=== PATIENT | female | born 1970 | race Caucasian/White ===

== ENCOUNTER 2018-02-27 07:53 | Emergency (ER) | payer BC ==
[~2018-02-27] VITALS: Ht 157.5 cm; Wt 114.3 kg
[2018-02-27] MEDS ORDERED: CYAN10009 PO (08:14)
[2018-02-27] MEDS ORDERED: GABA-534 PO (08:14)
[2018-02-27] MEDS ORDERED: LOSA100T15 PO (08:14)
[2018-02-27] MEDS ORDERED: GABA600T2 PO (08:14)
[2018-02-27] MEDS ORDERED: OMEP20CA10 PO (08:14)
[2018-02-27] MEDS ORDERED: AMLO10TA2 PO (08:14)
[2018-02-27] MEDS ORDERED: OXYC-133 PO (08:14)
[2018-02-27] MEDS ORDERED: METO50TA16 PO (08:14)
[2018-02-27] MEDS ORDERED: CHOL20004 PO (08:14)
[2018-02-27] MEDS ORDERED: LIDOCAINE HCL 1% 20 ML VIAL IJ ONE (08:30)
--- NOTE | 2018-02-27 09:12 | NUR ---
Patient discharged to home in stable conditon. Written and verbal after care instructions given to patient. Patient verbalizes understanding of instructions.
[2018-03-13] MEDS ORDERED: SIMV10TA6 PO (15:15)
[2018-03-13] MEDS ORDERED: LEVO500T2 PO (15:15)
== END 2018-02-27 09:14 | disposition home or self-care (01) ==
LOC: ER 07:56
DX: L02.212 Cutaneous abscess of back [any part, except buttock and flank] (principal); I10 Essential (primary) hypertension; Z88.5 Allergy status to narcotic agent; Z79.899 Other long term (current) drug therapy; Z79.891 Long term (current) use of opiate analgesic
CPT/HCPCS: A4663; J3490

== ENCOUNTER 2018-03-11 13:07 | Inpatient (IN) | payer BC, OTHER ==
[~2018-03-11] VITALS: Ht 157.5 cm; Wt 113.4 kg
[~2018-03-11 13:07] MED LIST: AMLO10TA2 PO; CHOL20004 PO; CYAN10009 PO; GABA-534 PO; GABA600T2 PO; LOSA100T15 PO; METO50TA16 PO; OMEP20CA10 PO; OXYC-133 PO
[2018-03-11] MEDS ORDERED: predniSONE 20 MG TABLET PO ONE (14:13)
[2018-03-11] MEDS ORDERED: IPRATROPIUM BROMIDE 0.5 MG/2.5 ML NEBU NEB ONE (14:15)
[2018-03-11] MEDS ORDERED: ALBUTEROL SULFATE 2.5 MG/3 ML NEBU NEB ONE (14:15)
[2018-03-11] MEDS ORDERED: predniSONE 50 MG TABLET ONE (14:30)
[2018-03-11] MEDS ORDERED: predniSONE 10 MG TABLET ONE (14:30)
[2018-03-11 14:32] LABS: BASOPHILS # (AUTO) 0.1 K/uL (0.0-8.0); BASOPHILS % (AUTO) 0.4 % (0.0-2.0); EOSINOPHILS # (AUTO) 0.1 K/uL (0.0-0.7); EOSINOPHILS % (AUTO) 0.7 % (0.0-7.0); HEMATOCRIT 33.8 % (31.2-41.9); HEMOGLOBIN 11.3 g/dL (10.9-14.3); LYMPHOCYTES # (AUTO) 2.7 K/uL (20.0-40.0); LYMPHOCYTES % (AUTO) 17.4 % (20.5-51.5); MEAN CORPUSCULAR HEMOGLOBIN 30.3 uug (24.7-32.8); MEAN CORPUSCULAR HGB CONC 33 g/dL (32.3-35.6); MONOCYTES # (AUTO) 0.7 K/uL (2.0-10.0); MONOCYTES % (AUTO) 4.4 % (0.0-11.0); NEUTROPHILS % (AUTO) 77.1 % (38.5-71.5); PLATELET COUNT (AUTO) 271 K/uL (179-408); RED BLOOD CELL COUNT(AUTO) 3.72 MIL/uL (3.63-4.92); WHITE BLOOD COUNT (AUTO) 15.5 K/uL (3.8-11.8)
[2018-03-11] MEDS ORDERED: ALBUTEROL SULFATE 2.5 MG/3 ML NEBU ONE (14:33)
[2018-03-11] MEDS ORDERED: IPRATROPIUM BROMIDE 0.5 MG/2.5 ML NEBU ONE (14:34)
[2018-03-11 14:40] LABS: CREATININE 0.6 mg/dL (0.6-1.3); POTASSIUM 3.9 mmol/L (3.5-5.1)
[2018-03-11 14:42] LABS: *BLOOD, URINE Trace-intact (NEGATIVE); *COLOR,URINE DARK YELLOW (YELLOW); *KETONES,URINE NEGATIVE (NEGATIVE); *PROTEIN,URINE 1+ (NEGATIVE); LEUKOCYTE ESTERASE ,URINE NEGATIVE (NEGATIVE); NITRITE, URINE NEGATIVE (NEGATIVE); UGLUCOSE NEGATIVE (NEGATIVE)
[2018-03-11 14:46] LABS: BILIRUBIN,TOTAL 0.5 mg/dL (0.2-1.0); TOTAL PROTEIN, SERUM 7.3 g/dL (6.4-8.2)
[2018-03-11 14:52] LABS: *BILIRUBIN,URIN NEGATIVE (NEGATIVE); *CLARITY,URINE HAZY (CLEAR)
[2018-03-11 14:53] LABS: MUCUS,URINE MANY /LPF (0-FEW); SQUAMOUS EPITHELIAL CELL,UR MODERATE /HPF (NONE SEEN)
[2018-03-11] MEDS ORDERED: AZITHROMYCIN 250 MG TABLET PO ONE (16:32)
[2018-03-11] MEDS ORDERED: AZITHROMYCIN 250 MG TABLET ONE (16:48)
[2018-03-11] MEDS ORDERED: IOHEXOL 300MG/ML 100 ML INFUS..BTL ONE (16:58)
[2018-03-11] MEDS ORDERED: SWABABLE VALVE TRANSFER SET EA MC ONE (16:58)
[2018-03-11] MEDS ORDERED: IV NORMAL SALINE 100 ML ONE (16:58)
[2018-03-11] MEDS ORDERED: NORMAL SALINE FLUSH 10 ML DISP.SYRIN ONE (16:58)
--- NOTE | 2018-03-11 17:22 | NUR ---
Pt signed consent for IV contrast.
[2018-03-11] MEDS ORDERED: TEMAZEPAM 15 MG CAPSULE PO PRN (18:45)
[2018-03-11] MEDS ORDERED: MAGNESIUM HYDROXIDE 30 ML LIQUID UDC PO PRN (18:45)
[2018-03-11] MEDS ORDERED: ONDANSETRON 4 MG/2 ML VIAL IV PRN (18:45)
[2018-03-11] MEDS ORDERED: ACETAMINOPHEN 325 MG TABLET PO PRN (18:45)
[2018-03-11 19:07] VITALS: BP 145/77
--- NOTE | 2018-03-11 20:00 | NUR ---
Pt observed to be AAO x 4 with at bedside. No s/s of distress at this time. Unit orientation provided. Pertinent assessments done. Bed in low, locked position. Call light within reach. Will continue to monitor closely.
[2018-03-11] MEDS: IV 1/2NS 1000 ML 1,000 ML IV PRN (20:21)
[2018-03-11 20:44] VITALS: BP 139/72
[2018-03-11] MEDS: CEFTRIAXONE 1 G in IV DEXTROSE 5% 50 ML IV SCH (20:47)
[2018-03-11] MEDS: METOPROLOL TARTRATE 50 MG TABLET PO SCH (20:53)
[2018-03-11] MEDS: GABAPENTIN 300 MG CAPSULE PO SCH (20:54)
[2018-03-11] MEDS ORDERED: Medication Not On Formulary EA (Gabapentin 600 MG) PO SCH (21:00)
[2018-03-11] MEDS: TEMAZEPAM 7.5 MG CAPSULE PO PRN (23:45)
[2018-03-11] MEDS: OXYCODONE/APAP 5-325 MG TABLET PO PRN (23:46)
[2018-03-12 05:09] VITALS: BP 138/68
--- NOTE | 2018-03-12 05:29 | NUR ---
Pt is observed to be coughing intermittently, and able to cough out a small amount of reddish sputum. No SOB noted. Denies pain at this time. All needs met. No s/s of distress at this time. Safety measures provided. Will endorse accordingly.
[2018-03-12] MEDS: PANTOPRAZOLE SODIUM 40 MG TABLET.DR PO SCH (06:05)
[2018-03-12] MEDS: OXYCODONE/APAP 5-325 MG TABLET PO PRN ×3 (06:16→18:33)
[2018-03-12 07:05] LABS: CREATININE 0.6 mg/dL (0.6-1.3); MAGNESIUM 2.1 mg/dL (1.8-2.4); PHOSPHOROUS 3.3 mg/dL (2.5-4.9)
[2018-03-12 07:09] LABS: BASOPHILS % (AUTO) 0.2 % (0.0-2.0); EOSINOPHILS % (AUTO) 0.1 % (0.0-7.0); HEMOGLOBIN 10.9 g/dL (10.9-14.3); LYMPHOCYTES # (AUTO) 2.3 K/uL (20.0-40.0); LYMPHOCYTES % (AUTO) 16.2 % (20.5-51.5); MEAN CORPUSCULAR HEMOGLOBIN 30.8 uug (24.7-32.8); MEAN CORPUSCULAR HGB CONC 34 g/dL (32.3-35.6); MEAN CORPUSCULAR VOLUME 90.5 fL (75.5-95.3); MONOCYTES # (AUTO) 0.6 K/uL (2.0-10.0); MONOCYTES % (AUTO) 4.2 % (0.0-11.0); NEUTROPHILS % (AUTO) 79.3 % (38.5-71.5); PLATELET COUNT (AUTO) 265 K/uL (179-408); RED BLOOD CELL COUNT(AUTO) 3.53 MIL/uL (3.63-4.92); WHITE BLOOD COUNT (AUTO) 13.9 K/uL (3.8-11.8)
[2018-03-12 07:17] LABS: THYROID STIMULATING HORMONE 0.328 mIU/mL (0.358-3.740)
[2018-03-12] MEDS: LOSARTAN POTASSIUM 50 MG TABLET PO SCH (08:01)
[2018-03-12] MEDS: CYANOCOBALAMIN 1,000 MCG TABLET PO SCH (08:01)
[2018-03-12] MEDS: METOPROLOL TARTRATE 50 MG TABLET PO SCH ×2 (08:02→20:31)
[2018-03-12] MEDS: GABAPENTIN 300 MG CAPSULE PO SCH ×3 (08:02→20:31)
[2018-03-12] MEDS: CHOLECALCIFEROL 1,000 UNIT TABLET PO SCH (08:02)
[2018-03-12] MEDS ORDERED: Medication Not On Formulary EA (Cholecalciferol (Vitamin D3) (Vitamin D CAPSULE) 2,000 U PO SCH (09:00)
[2018-03-12] MEDS ORDERED: AMLODIPINE 10 MG TABLET PO SCH (09:00)
[2018-03-12] MEDS ORDERED: Medication Not On Formulary EA (Losartan Potassium 100 MG) PO SCH (09:00)
[2018-03-12 11:42] VITALS: BP 139/82
[2018-03-12] MEDS: IV 1/2NS 1000 ML 1,000 ML IV PRN (12:06)
[2018-03-12 15:40] VITALS: BP_SYST 104; BP_SYST 150; BP_DIAS 49; BP_DIAS 77
[2018-03-12] MEDS: AZITHROMYCIN IV 500 MG in IV DEXTROSE 5% 250 ML IV SCH (16:22)
[2018-03-12] MEDS: CEFTRIAXONE 1 G in IV DEXTROSE 5% 50 ML IV SCH (17:58)
[2018-03-12] MEDS: ALBUTEROL SULFATE 2.5 MG/3 ML NEBU NEB PRN (19:20)
--- NOTE | 2018-03-12 20:00 | NUR ---
RECEIVED PATIENT AWAKE IN BED. A/O X4. DENIES ANY PAIN OR DISCOMFORT AT THIS TIME. NO RESP. DISTRESS NOTED. DENIES SOB. PRODUCTIVE COUGH NOTED. IVF INFUSING WELL TO LEFT FA #22 GAUGE. VS WNL. CALL LIGHT IN REACH. ALL NEEDS ATTENDED. WILL CONTINUE TO MONITOR AND ASSESS.
[2018-03-12] MEDS: LACTOBACILLUS RHAMNOSUS GG 1 EACH CAPSULE PO SCH (20:31)
[2018-03-12 20:34] VITALS: BP 121/71
[2018-03-12] MEDS ORDERED: SIMVASTATIN 10 MG TABLET PO SCH (21:00)
[2018-03-12] MEDS: TEMAZEPAM 7.5 MG CAPSULE PO PRN (23:04)
[2018-03-13] MEDS: OXYCODONE/APAP 5-325 MG TABLET PO PRN ×3 (01:40→13:03)
[2018-03-13] MEDS: IV 1/2NS 1000 ML 1,000 ML IV PRN (03:17)
[2018-03-13] MEDS: ALBUTEROL SULFATE 2.5 MG/3 ML NEBU NEB PRN (05:02)
[2018-03-13 05:45] VITALS: BP 130/73
[2018-03-13] MEDS: PANTOPRAZOLE SODIUM 40 MG TABLET.DR PO SCH (06:09)
[2018-03-13 06:11] LABS: BASOPHILS # (AUTO) 0.1 K/uL (0.0-8.0); BASOPHILS % (AUTO) 0.7 % (0.0-2.0); EOSINOPHILS # (AUTO) 0.2 K/uL (0.0-0.7); EOSINOPHILS % (AUTO) 1.6 % (0.0-7.0); HEMATOCRIT 33.5 % (31.2-41.9); HEMOGLOBIN 11.4 g/dL (10.9-14.3); LYMPHOCYTES # (AUTO) 4.6 K/uL (20.0-40.0); LYMPHOCYTES % (AUTO) 43.8 % (20.5-51.5); MEAN CORPUSCULAR HEMOGLOBIN 31.1 uug (24.7-32.8); MEAN CORPUSCULAR HGB CONC 34 g/dL (32.3-35.6); MEAN CORPUSCULAR VOLUME 91.3 fL (75.5-95.3); MONOCYTES # (AUTO) 0.5 K/uL (2.0-10.0); MONOCYTES % (AUTO) 4.7 % (0.0-11.0); NEUTROPHILS # (AUTO) 5.1 K/uL (1.8-8.9); NEUTROPHILS % (AUTO) 49.2 % (38.5-71.5); PLATELET COUNT (AUTO) 285 K/uL (179-408); RED BLOOD CELL COUNT(AUTO) 3.67 MIL/uL (3.63-4.92); WHITE BLOOD COUNT (AUTO) 10.4 K/uL (3.8-11.8)
--- NOTE | 2018-03-13 06:44 | NUR ---
PATIENT AWAKE IN BED. SLEPT WELL. PATIENT DOES NOT WANT IVF AT THIS TIME. WILL ENDORSE TO AM SHIFT. ALL NEEDS ATTENDED. WILL CONTINUE TO MONITOR.
[2018-03-13] MEDS: CHOLECALCIFEROL 1,000 UNIT TABLET PO SCH (08:05)
[2018-03-13] MEDS: GABAPENTIN 300 MG CAPSULE PO SCH ×2 (08:05→17:00)
[2018-03-13] MEDS: CYANOCOBALAMIN 1,000 MCG TABLET PO SCH (08:05)
[2018-03-13] MEDS: LACTOBACILLUS RHAMNOSUS GG 1 EACH CAPSULE PO SCH (08:05)
[2018-03-13] MEDS: METOPROLOL TARTRATE 50 MG TABLET PO SCH (08:06)
[2018-03-13] MEDS: LOSARTAN POTASSIUM 50 MG TABLET PO SCH (08:06)
[2018-03-13] MEDS ORDERED: AMLODIPINE 10 MG TABLET PO SCH (08:26)
[2018-03-13 13:05] VITALS: BP 142/73
[2018-03-13] MEDS ORDERED: LEVO500T2 PO (15:15)
[2018-03-13] MEDS ORDERED: SIMV10TA6 PO (15:15)
[2018-03-13] MEDS: AZITHROMYCIN IV 500 MG in IV DEXTROSE 5% 250 ML IV SCH (15:58)
[2018-03-13] MEDS ORDERED: CEFTRIAXONE 1 G VIAL IM ONE (16:00)
[2018-03-13] MEDS ORDERED: CEFTRIAXONE 1 G in IV DEXTROSE 5% 50 ML IV ONE (16:15)
[2018-03-13 16:20] VITALS: BP 127/58
--- NOTE | 2018-03-13 19:02 | NUR ---
Patient discharged to home. Discharge teachings/instructions provided, patient verbalized understanding. Belonging list done, IV access removed. Patient is ambulatory, refused to use wheelchair. Patient is assisted by spouse and grandchild.
== END 2018-03-13 19:05 | disposition home or self-care (01) | DRG 194 ==
LOC: ER 13:10 → TELE 17:58 → MED 21:17
PROVIDERS: ADMIT Internal Medicine; ATTEND Internal Medicine
DX: J18.9 Pneumonia, unspecified organism (principal); Z68.42 Body mass index [BMI] 45.0-49.9, adult; E66.01 Morbid (severe) obesity due to excess calories; I10 Essential (primary) hypertension; G62.9 Polyneuropathy, unspecified; E78.5 Hyperlipidemia, unspecified; M19.90 Unspecified osteoarthritis, unspecified site; K21.9 Gastro-esophageal reflux disease without esophagitis; G89.29 Other chronic pain; Z87.891 Personal history of nicotine dependence; Z80.1 Family history of malignant neoplasm of trachea, bronchus and lung; Z79.899 Other long term (current) drug therapy; Z96.651 Presence of right artificial knee joint
CPT/HCPCS: 36415; 70030-TC; 71045; 71260; 83735; 84100; 84443; 84703; 85025; 87070; 93005; 94640; A4663; J0456; J0696; J3490; J3590; J7030; J7060; J7512; Q0144; Q9967

== ENCOUNTER 2018-04-02 20:31 | Outpatient (CLI) | payer BC, OTHER ==
[~2018-04-02 20:31] MED LIST changes: +LEVO500T2 PO; +SIMV10TA6 PO
[2018-04-02 21:02] LABS: *BILIRUBIN,URIN NEGATIVE (NEGATIVE); *BLOOD, URINE NEGATIVE (NEGATIVE); *CLARITY,URINE CLEAR (CLEAR); *COLOR,URINE YELLOW (YELLOW); *KETONES,URINE NEGATIVE (NEGATIVE); *PROTEIN,URINE NEGATIVE (NEGATIVE); *UROBILINOGEN,URINE 0.2 E.U./dl (NORMAL); LEUKOCYTE ESTERASE ,URINE NEGATIVE (NEGATIVE); NITRITE, URINE NEGATIVE (NEGATIVE); UGLUCOSE NEGATIVE (NEGATIVE)
[2018-04-02 21:12] LABS: BASOPHILS % (AUTO) 0.7 % (0.0-2.0); EOSINOPHILS # (AUTO) 0.2 K/uL (0.0-0.7); EOSINOPHILS % (AUTO) 3.1 % (0.0-7.0); HEMATOCRIT 35.5 % (31.2-41.9); LYMPHOCYTES # (AUTO) 2.5 K/uL (20.0-40.0); LYMPHOCYTES % (AUTO) 33.4 % (20.5-51.5); MEAN CORPUSCULAR HEMOGLOBIN 30.3 uug (24.7-32.8); MEAN CORPUSCULAR HGB CONC 34 g/dL (32.3-35.6); MEAN CORPUSCULAR VOLUME 89.4 fL (75.5-95.3); MONOCYTES # (AUTO) 0.5 K/uL (2.0-10.0); MONOCYTES % (AUTO) 6.1 % (0.0-11.0); NEUTROPHILS # (AUTO) 4.3 K/uL (1.8-8.9); NEUTROPHILS % (AUTO) 56.7 % (38.5-71.5); PLATELET COUNT (AUTO) 264 K/uL (179-408); RED BLOOD CELL COUNT(AUTO) 3.97 MIL/uL (3.63-4.92); WHITE BLOOD COUNT (AUTO) 7.6 K/uL (3.8-11.8)
[2018-04-02 21:19] LABS: BILIRUBIN,TOTAL 0.4 mg/dL (0.2-1.0); CREATININE 0.7 mg/dL (0.6-1.3); POTASSIUM 4.5 mmol/L (3.5-5.1); TOTAL PROTEIN, SERUM 7.2 g/dL (6.4-8.2)
[2018-04-02 21:25] LABS: RBC,URINE 0-3 /HPF (0-3); SQUAMOUS EPITHELIAL CELL,UR FEW /HPF (NONE SEEN); WBC,URINE 0-3 /HPF (0-3)
== END 2018-04-02 23:59 | disposition home or self-care (01) ==
LOC: LAB 20:31
PROVIDERS: ATTEND Legal Medicine
DX: Z00.01 Encounter for general adult medical examination with abnormal findings (principal); I10 Essential (primary) hypertension; E11.9 Type 2 diabetes mellitus without complications; R53.1 Weakness
CPT/HCPCS: 36415; 85025; 85651; 86140

== ENCOUNTER 2018-11-23 10:54 | Outpatient (CLI) | payer BC, OTHER ==
[~2018-11-23 10:54] MED LIST changes: -AMLO10TA2 PO; +AMLO10TA7 PO; +GABA600T12 PO; -GABA600T2 PO; -LOSA100T15 PO; +LOSA100T31 PO
[2018-11-23 11:37] LABS: *BILIRUBIN,URIN NEGATIVE (NEGATIVE); *BLOOD, URINE Trace-intact (NEGATIVE); *CLARITY,URINE CLEAR (CLEAR); *COLOR,URINE YELLOW (YELLOW); *KETONES,URINE NEGATIVE (NEGATIVE); *UROBILINOGEN,URINE 0.2 E.U./dl (NORMAL); LEUKOCYTE ESTERASE ,URINE 1+ (NEGATIVE); NITRITE, URINE POSITIVE (NEGATIVE); PH,URINE 5.5 (5.0-8.0); UGLUCOSE NEGATIVE (NEGATIVE)
[2018-11-23 11:38] LABS: BACTERIA,URINE NONE SEEN /HPF (NONE SEEN); RBC,URINE 0-3 /HPF (0-3); SQUAMOUS EPITHELIAL CELL,UR FEW /HPF (NONE SEEN); YEAST,URINE NONE SEEN /HPF (NONE SEEN)
[2018-11-23 11:39] LABS: BASOPHILS # (AUTO) 0.1 K/uL (0.0-8.0); EOSINOPHILS # (AUTO) 0.2 K/uL (0.0-0.7); EOSINOPHILS % (AUTO) 1.8 % (0.0-7.0); HEMATOCRIT 34.9 % (31.2-41.9); HEMOGLOBIN 11.9 g/dL (10.9-14.3); LYMPHOCYTES # (AUTO) 2.6 K/uL (20.0-40.0); LYMPHOCYTES % (AUTO) 22.8 % (20.5-51.5); MEAN CORPUSCULAR HEMOGLOBIN 30.8 uug (24.7-32.8); MEAN CORPUSCULAR HGB CONC 34 g/dL (32.3-35.6); MEAN CORPUSCULAR VOLUME 90.2 fL (75.5-95.3); MONOCYTES # (AUTO) 0.7 K/uL (2.0-10.0); MONOCYTES % (AUTO) 5.9 % (0.0-11.0); NEUTROPHILS # (AUTO) 7.8 K/uL (1.8-8.9); NEUTROPHILS % (AUTO) 68.5 % (38.5-71.5); PLATELET COUNT (AUTO) 281 K/uL (179-408); RED BLOOD CELL COUNT(AUTO) 3.87 MIL/uL (3.63-4.92); WHITE BLOOD COUNT (AUTO) 11.4 K/uL (3.8-11.8)
[2018-11-23 12:03] LABS: THYROID STIMULATING HORMONE 0.751 mIU/mL (0.358-3.740)
[2018-11-23 12:20] LABS: BILIRUBIN,TOTAL 0.4 mg/dL (0.2-1.0); CREATININE 0.7 mg/dL (0.6-1.3); POTASSIUM 3.9 mmol/L (3.5-5.1); TOTAL PROTEIN, SERUM 7.4 g/dL (6.4-8.2); URIC ACID 3.5 mg/dL (2.6-6.0)
[2018-11-26 18:06] LABS: *VITAMIN D 25-OH VIT D 22 ng/mL (.); *VITAMIN D 25-OH, D2 <1.0 ng/mL (.); *VITAMIN D 25-OH, D3 22 ng/mL (.)
== END 2018-11-23 23:59 | disposition home or self-care (01) ==
LOC: LAB 10:54
PROVIDERS: ATTEND Legal Medicine
DX: Z00.00 Encounter for general adult medical examination without abnormal findings (principal); E11.9 Type 2 diabetes mellitus without complications; I10 Essential (primary) hypertension; E78.00 Pure hypercholesterolemia, unspecified; E03.9 Hypothyroidism, unspecified; D64.9 Anemia, unspecified; E55.9 Vitamin D deficiency, unspecified
CPT/HCPCS: 36415; 82043; 82570; 83550; 84443; 84550; 85025; 87077; 87086

== ENCOUNTER 2019-07-29 15:33 | Emergency (ER) | payer BC, OTHER ==
[~2019-07-29] VITALS: Ht 157.5 cm; Wt 131.5 kg
[~2019-07-29 15:33] MED LIST changes: -OMEP20CA10 PO; +OMEP20CA11 PO
[2019-07-29 16:38] LABS: BASOPHILS % (AUTO) 0.3 % (0.0-2.0); EOSINOPHILS # (AUTO) 0.3 K/uL (0.0-0.7); EOSINOPHILS % (AUTO) 3.2 % (0.0-7.0); HEMATOCRIT 35.6 % (31.2-41.9); HEMOGLOBIN 11.7 g/dL (10.9-14.3); LYMPHOCYTES # (AUTO) 2.7 K/uL (20.0-40.0); LYMPHOCYTES % (AUTO) 34.7 % (20.5-51.5); MEAN CORPUSCULAR HEMOGLOBIN 29.6 uug (24.7-32.8); MEAN CORPUSCULAR HGB CONC 33 g/dL (32.3-35.6); MEAN CORPUSCULAR VOLUME 89.6 fL (75.5-95.3); MONOCYTES # (AUTO) 0.5 K/uL (2.0-10.0); NEUTROPHILS # (AUTO) 4.4 K/uL (1.8-8.9); NEUTROPHILS % (AUTO) 55.8 % (38.5-71.5); PLATELET COUNT (AUTO) 268 K/uL (179-408); RED BLOOD CELL COUNT(AUTO) 3.97 MIL/uL (3.63-4.92); WHITE BLOOD COUNT (AUTO) 7.9 K/uL (3.8-11.8)
[2019-07-29 16:39] LABS: CREATININE 0.8 mg/dL (0.6-1.3); POTASSIUM 4.5 mmol/L (3.5-5.1)
--- NOTE | 2019-07-29 17:14 | NUR ---
Patient discharged to home in stable conditon. Written and verbal after care instructions given. Patient verbalizes understanding of instructions.pt walks in steady gait.
== END 2019-07-29 17:22 | disposition home or self-care (01) ==
LOC: ER 15:39
DX: R06.00 Dyspnea, unspecified (principal); R22.43 Localized swelling, mass and lump, lower limb, bilateral; E66.01 Morbid (severe) obesity due to excess calories; Z68.39 Body mass index [BMI] 39.0-39.9, adult; I10 Essential (primary) hypertension; Z88.5 Allergy status to narcotic agent; Z79.899 Other long term (current) drug therapy; Z79.2 Long term (current) use of antibiotics
CPT/HCPCS: 36415; 70030-TC; 71046; 85025; 93005; A4663